=== PATIENT | male | born 1950 | race Caucasian/White ===

== ENCOUNTER 2020-07-29 03:18 | Inpatient (IN) | payer OTHER ==
[~2020-07-29] VITALS: Ht 170.2 cm; Wt 93.1 kg
[~2020-07-29 03:18] MED LIST: ACCUPRIL PO; ALDACTONE25 MG PO; ALDACTONE50 MG PO; AZITHROMYCIN 2250 MG PO; CLOPIDOGREL PO; DIABETA PO; DUONEB 2.5-0.5 M3 ML IH; FAMOTIDINE20 MG PO; FOLIC ACID1 MG PO; FUROSEMIDE 20 M20 MG GT; GLYBURIDE 5 MG T5 M1 GT; LANOXIN 0.250.25 M1 PO; LANTUS SOL100 UNIT/1 SQ; LASIX 20 MG TAB20 MG PO; LASIX 40 MG TAB40 MG PO; LISINOPRIL20 MG PO; NYSTATIN 1100000 U/M PO; PLAVIX 75 MG TA75 MG PO; PREDNISONE 10 M10 M1 PO; PREDNISONE 20 M20 M1; SIMVASTATIN80 MG PO; WELLBUTRIN XL150 M1 PO
[2020-07-29 03:22] VITALS: BP 170/93
[2020-07-29 04:07] LABS: BE(vivo) -1.3 mmol/L (-2 to +3); PCO2 42.7 mmHg (35.0-45.0); PO2 61.8 mmHg (80.0-100.0); pH 7.368 (7.360-7.450)
[2020-07-29 04:23] LABS: ABSOLUTE NEUTROPHILS 13.9 thou/uL (1.4-8.2); BASOPHILS 0.7 % (0.0-2.0); EOSINOPHILS 0.5 % (0.0-3.0); HEMATOCRIT 41.6 % (42.0-52.0); HEMOGLOBIN 13.3 gm/dL (14.0-18.0); LYMPHOCYTES 6.9 % (24.0-44.0); MCH 27.5 pg (26.0-34.0); MCV 85.8 fL (80.0-100.0); MONOCYTES 7.1 % (1.0-8.0); PLATELET COUNT 271 thou/uL (150-400); POLYS 84.8 % (36.0-66.0); RBC 4.85 mil/uL (4.50-6.00); RDW 14.8 % (10.5-14.5); WBC 16.4 thou/uL (4.0-11.0)
[2020-07-29 04:29] LABS: ANION GAP 9 mmol/L (7-16); BUN 17 mg/dL (7-18); CHLORIDE 101 mmol/L (98-107); CO2 26 mmol/L (21-32); CREATININE 1.9 mg/dL (0.7-1.3); GLUCOSE 213 mg/dL (74-106); SODIUM 136 mmol/L (136-145)
[2020-07-29 04:38] LABS: TROPONIN-I <0.06 ng/mL (<0.06)
--- NOTE | 2020-07-29 07:41 | EKG ---
[facility] [place] [address] ELECTROCARDIOGRAM REPORT Name: ANALISA ROMO Room #: [facility].#: [id number] Admission: 07/29/20 Attend Phys: Discharge: Date of : 54 Report #: [id number] THIS REPORT FOR: cc: DR Connie HAMILTON,Jung Arce,Vidal VILLAGOMEZ [facility] ~ THIS REPORT FOR: //name// [facility] ED Test Date: 2020-07-29 Test Time: 03:51:56 Pat Name: ANALISA ROMO Department: Room: Gender: M Material Handling Supervisor: [email or web address] : 1950 Requested By: Blanco Edwards Order Number: [id number] MD: Vidal Arce Measurements Intervals [place] Rate: 110 P: -12 GA: 139 QRS: -155 QRSD: 144 T: 24 QT: 350 QTc: 474 Interpretive Statements Sinus tachycardia Prominent P waves, nondiagnostic RBBB Inferior infarct, old Compared to ECG 03/11/2011 23:47:05 Left posterior fascicular block now present Right-axis deviation no longer present Myocardial infarct finding still present Electronically Signed On 07-29-2020 7:41:31 RN MED SURG by Vidal Arce [email or web address] <ELECTRONICALLY SIGNED> By: Vidal Arce MD, FACC 07/29/20 0741 0 0 Vidal Arce MD, FACC /EPI
[2020-07-29 18:33] VITALS: BP 134/75
[2020-07-29 19:10] VITALS: BP 132/80
[2020-07-29 19:30] LABS: TSH 1.453 uIU/mL (0.358-3.740)
[2020-07-29 20:30] VITALS: BP 127/77
[2020-07-30 00:14] VITALS: BP 144/83
[2020-07-30 04:17] VITALS: BP 122/77
--- NOTE | 2020-07-30 05:03 | NUR ---
ASSUMED PT CARE AT 1900. PT FROM ER. A&OX4. ADMISSION DONE AND PT ORIENTED TO THE UNIT. ON 5L OF O2 93-96%. PT C/O OF TROUBLE BREATHING. CALLED RT FOR TREATMENT. PT SITS UP ON EDGE OF BED TO HELP WITH BREATHING. CLEAR LUNG SOUNDS AIX ADMINISTRATOR NOTIFIED. URINAL AT BEDSIDE. COVID RESULT NEGATIVE. BSG CHECKED WITH INSULIN PROVIDED. CALL LIGHT AT REACH AND WILL CONT TO MONITIOR
[2020-07-30 05:17] LABS: ALBUMIN 3.7 g/dL (3.4-5.0); TOTAL PROTEIN 7.9 g/dL (6.4-8.2)
[2020-07-30 08:53] VITALS: BP 128/72
[2020-07-30 09:18] LABS: HEMATOCRIT 43.2 % (42.0-52.0); HEMOGLOBIN 13.6 gm/dL (14.0-18.0); MCH 27.1 pg (26.0-34.0); MCHC 31.4 g/dL (28.0-37.0); MCV 86.3 fL (80.0-100.0); RBC 5.01 mil/uL (4.50-6.00); RDW 14.8 % (10.5-14.5); WBC 15.3 thou/uL (4.0-11.0)
[2020-07-30 09:19] VITALS: BP 135/91
[2020-07-30 09:23] LABS: CALCIUM 9.4 mg/dL (8.5-10.1); CREATININE 1.6 mg/dL (0.7-1.3); MAGNESIUM 1.4 mg/dL (1.8-2.4); POTASSIUM 5.6 mmol/L (3.5-5.1)
[2020-07-30 15:09] LABS: BE(vivo) -2.6 mmol/L (-2 to +3); HCO3 21.7 mmol/L (22.0-26.0); PCO2 36.5 mmHg (35.0-45.0); PO2 69.1 mmHg (80.0-100.0); pH 7.393 (7.360-7.450); sO2 93.9 % (92.0-98.0)
[2020-07-30 15:20] LABS: HEMATOCRIT 42.3 % (42.0-52.0); HEMOGLOBIN 13.4 gm/dL (14.0-18.0); MCH 26.9 pg (26.0-34.0); MCHC 31.6 g/dL (28.0-37.0); RBC 4.98 mil/uL (4.50-6.00); RDW 14.9 % (10.5-14.5)
[2020-07-30 15:30] LABS: CALCIUM 9.7 mg/dL (8.5-10.1); MAGNESIUM 1.7 mg/dL (1.8-2.4); POTASSIUM 4.9 mmol/L (3.5-5.1)
--- NOTE | 2020-07-30 15:47 | NUR ---
RN ASSUMED PT'S CARE AT 0700AM, PT IS A&OX3, PT IS OFF ISOLATION FOR NEGATIVE COVID, RN HAS REPORTED TO , PT NEEDS MORE O2 TO 10-12L/MIN/NC TO KEEP O2SAT 92-95%, PT HAS SOB WITH ACTIVITIES, PT WAS GOING TO 2N 208 ABOUT 1500PM, RN HAS GIVING REPORT . PT'S FAMILY HAS NOTIFIED ABOUT PT TO ROOM 208.
[2020-07-30 16:45] VITALS: BP 152/76
--- NOTE | 2020-07-30 17:32 | NUR ---
PT ARRIVED TO UNIT FROM 3W AT APPROX 1500. PT ALERT AND ORIENTED.VSS EXCEPT FOR O2 SATS HIGH 80S LOW 90S ON 15L HIGH FLOW O2. PT HR APPEARS TO BE SVT 120S-130S. PHYSICIAN NOTIFIED, PULMONARY NOTIFIED. ORDERS RECEIVED. MAGNESIUM REPLACED. HR RETURNING NORMAL. PT CONTINUES TO BE ON 15L, C/O SOB WITH ACTIVITY. PT CURRENTLTY SITTING UP IN BED DENIES NEEDS AT THIS TIME. WILL CONT TO MONITOR PT AND FOLLOW POC.
[2020-07-30 19:55] VITALS: BP 131/71
--- NOTE | 2020-07-31 02:58 | NUR ---
ASSESSMENTS CHARTED, MEDS CHARTED GIVEN. PATIENT HAS A BBB ON TELEMETRY, LOWER EXTREMITIES ARE +2 EDEMITIS. PATIENT ON HIGH VENKAT CANNULA AT 15 LITERS AT START OF SHIFT. WENT ON BIPAP AT [facility]. PATIENT HAD BOWEL MOVEMENT AND URINATED DURING SHIFT. PATIENT BECOMES VERY SHORT OF BREATH WITH ANY ACTIVITY. DENIES PAIN. FALL PROTECTIONS IN PLACE DURING SHIFT.
[2020-07-31 03:47] VITALS: BP 121/78
[2020-07-31 05:26] LABS: HEMATOCRIT 40.9 % (42.0-52.0); HEMOGLOBIN 13.2 gm/dL (14.0-18.0); MCH 27.6 pg (26.0-34.0); MCHC 32.3 g/dL (28.0-37.0); MCV 85.4 fL (80.0-100.0); RBC 4.79 mil/uL (4.50-6.00); RDW 14.8 % (10.5-14.5); WBC 16.4 thou/uL (4.0-11.0)
[2020-07-31 05:46] LABS: CALCIUM 9.9 mg/dL (8.5-10.1); CREATININE 1.7 mg/dL (0.7-1.3); MAGNESIUM 2.1 mg/dL (1.8-2.4); POTASSIUM 4.4 mmol/L (3.5-5.1)
[2020-07-31 07:31] VITALS: BP 116/67
--- NOTE | 2020-07-31 09:08 | EKG ---
[facility] [place] [address] [facility] [place] [address] ELECTROCARDIOGRAM REPORT Name: ANALISA ROMO Room #: 208-P ADM IN M.R.#: [id number] Admission: 07/29/20 Attend Phys: Bart Perkins MD Discharge: Date of : 54 Report #: [id number] THIS REPORT FOR: cc: DR Connie HAMILTON,Vidal Villarreal MD, MD [facility] ~ THIS REPORT FOR: //name// [facility] [place] Test Date: 2020-07-30 Test Time: 15:08:34 Pat Name: ANALISA ROMO Department: Room: 208 Gender: M Rn Documentation Specialist: Kory VALENTINE : 1950 Requested By: Bart Perkins Order Number: [id number] MD: Vidal Arce Measurements Intervals [place] Rate: 115 P: 5 WV: 133 QRS: -143 QRSD: 136 T: 28 QT: 352 QTc: 487 Interpretive Statements Sinus tachycardia Right bundle branch block Anterolateral infarct, old Compared to ECG 07/29/2020 03:51:56 No significant changes Electronically Signed On 07-31-2020 9:07:51 INKER MACHINE by Vidal Arce [email or web address] <ELECTRONICALLY SIGNED> By: Vidal Arce MD, FACC 07/31/20 0907 1508 1508 Vidal Arce MD, FAC /EPI
[2020-07-31 11:21] VITALS: BP 111/62
[2020-07-31 16:25] VITALS: BP 127/98
--- NOTE | 2020-07-31 17:34 | NUR ---
ASSESSMENT CHARTED. PT ALERT AND ORIENTED. VSS. DENIED HAVING PAIN OR DISCOMFORT. SOB NOTED WITH ACTIVITY. FAL PRECAUTION IN PLACE. NO CONCERNS AT THIS TIME.
[2020-07-31 19:35] VITALS: BP 143/62
[2020-08-01 00:35] VITALS: BP 150/69
--- NOTE | 2020-08-01 02:02 | NUR ---
1999 [facility] PATIENT HAS UNSTEADY GAIT. BED ALARM ON. ASSITED BACK TO BED AND DANGLING ON BEDSIDE. 2229 PATIENT RESTING WITHOUT COMPLAINTS. REPORT GIVEN TO LAURA WEN.
--- NOTE | 2020-08-01 03:28 | NUR ---
RECEIVED PT SITTING UP IN THE BED AROUND MIDNIGHT. AXOX4. PLEASANT. CONT PULSE OX MONITORING. VSS. NO S/S ACUTE DISTRESS NOTED OR REPORTED AT THIS TIME. WILL CONT TO MONITOR FOR ANY CHANGES IN CONDITION.
[2020-08-01 03:46] LABS: HEMATOCRIT 41.2 % (42.0-52.0); MCH 26.7 pg (26.0-34.0); MCHC 31.5 g/dL (28.0-37.0); MCV 84.8 fL (80.0-100.0); RBC 4.86 mil/uL (4.50-6.00); RDW 14.9 % (10.5-14.5); WBC 12.8 thou/uL (4.0-11.0)
[2020-08-01 03:56] LABS: CALCIUM 9.5 mg/dL (8.5-10.1); MAGNESIUM 2.1 mg/dL (1.8-2.4); POTASSIUM 4.3 mmol/L (3.5-5.1)
[2020-08-01 04:35] VITALS: BP 141/64
[2020-08-01 08:30] VITALS: BP 130/71
--- NOTE | 2020-08-01 15:07 | NUR ---
Met with patient who is A/Ox4. He admits with hypoxia now on 15 liters of oxygen. Patient does not wear oxygen at home. patient resides in independent home with and grandchildren. He has a walker and uses as needed. He has a PCP but cannot think of her name at the moment. He reports steps in home but no difficulty. 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 Casemgt following possible need for home oxygen, possible HH.
--- NOTE | 2020-08-01 16:13 | NUR ---
PT ALERT AND ORIENTED. ON HIGH FLOW O2. SOB NOTED WITH ACTIVITY. RT TREATMENT PROVIDED ORDERED. NPO AFTER MIDNIGT. SCHEDULED FOR BRONCHOSCOPY IN AM. NO CONCERNS AT THIS TIME.
[2020-08-01 20:08] VITALS: BP 132/77
[2020-08-02 03:20] VITALS: BP 118/63
[2020-08-02 05:32] LABS: HEMOGLOBIN 12.8 gm/dL (14.0-18.0); MCH 26.9 pg (26.0-34.0); MCHC 31.2 g/dL (28.0-37.0); MCV 86.3 fL (80.0-100.0); RBC 4.76 mil/uL (4.50-6.00); RDW 14.8 % (10.5-14.5); WBC 11.9 thou/uL (4.0-11.0)
[2020-08-02 05:59] LABS: CALCIUM 9.2 mg/dL (8.5-10.1); CREATININE 1.7 mg/dL (0.7-1.3); MAGNESIUM 2.2 mg/dL (1.8-2.4); POTASSIUM 4.1 mmol/L (3.5-5.1)
--- NOTE | 2020-08-02 07:51 | NUR ---
PATIENT SLEPT THROUGH HALF OF THE NIGHT. FALL PRECAUTIONS IN PLACE. USES BEDSIDE COMMODE. PT RECIEVING 50L PER OPTIFLOW. NO COMPLAINTS OF PAIN. PT PICKED UP BY SURGERY THIS MORNING AT 0645 FOR BRONCH. PT NPO SINCE MIDNIGHT, IN HOSPITAL GOWN, JEWELRY/RINGS OFF, AND DENTURES OUT.
[2020-08-02 12:38] VITALS: BP 122/58
[2020-08-02 17:00] VITALS: BP 123/69
[2020-08-02 21:33] VITALS: BP 129/64
--- NOTE | 2020-08-03 01:06 | NUR ---
ASSUMED PT CARE AT THE CHANGE OF SHIFT, PT IS AWAKE, SITTING ON THE SIDE OF BED, ALERT AND ORIENTEDX4, ASSESSMENTS CHARTED, DENIES PAIN, STATES BREATHING BETTER ON OPTIFLOW, SR/BBB ON THE MONITOR, MEDS GIVEN PER NOV, NO NEEDS VOICED, PASSED ON REPORT
[2020-08-03 04:45] VITALS: BP 132/64
--- NOTE | 2020-08-03 04:47 | NUR ---
CARE ASSUMED 0000, PT PLEASANT. ALERT AND ORIENTED. VITALS STABLE. DENIES CHEST PAIN NAUSEA OR VIMITING. MAINTAINED ON OPTIFLOW OVERNIGHT, O2 SATs STABLE. NO CONCERNS , WILL CONTINUE TO MONITOR AND FOLLOW POC.
[2020-08-03 04:51] LABS: HEMATOCRIT 38.7 % (42.0-52.0); HEMOGLOBIN 12.3 gm/dL (14.0-18.0); MCH 27.5 pg (26.0-34.0); MCHC 31.7 g/dL (28.0-37.0); MCV 86.6 fL (80.0-100.0); RBC 4.47 mil/uL (4.50-6.00); RDW 14.7 % (10.5-14.5); WBC 10.3 thou/uL (4.0-11.0)
[2020-08-03 05:09] LABS: CALCIUM 8.7 mg/dL (8.5-10.1); CREATININE 1.7 mg/dL (0.7-1.3); MAGNESIUM 2.2 mg/dL (1.8-2.4); POTASSIUM 4.6 mmol/L (3.5-5.1)
[2020-08-03 07:35] VITALS: BP 144/64
[2020-08-03 11:08] VITALS: BP 134/62
[2020-08-03 12:24] LABS: BE(vivo) 2.5 mmol/L (-2 to +3); HCO3 28.3 mmol/L (22.0-26.0); PCO2 48.4 mmHg (35.0-45.0); pH 7.385 (7.360-7.450); sO2 85.5 % (92.0-98.0)
[2020-08-03 12:31] LABS: PO2 51.3 mmHg (80.0-100.0)
--- NOTE | 2020-08-03 12:56 | NUR ---
PER DR CERON WE ARE TO KEEP THIS PATIENTS SATURATION AT 90%. WE ARE TO ACTIVELY BE WEANING THIS PATIENT TO A LITER FLOW THAT HE CAN GO HOME ON.
[2020-08-03] MEDS ORDERED: BUPROPION HCL150 M1 PO (14:07)
[2020-08-03 15:05] VITALS: BP 136/56
--- NOTE | 2020-08-03 17:13 | NUR ---
Dr Calvo plans to sp with and update. Cont to attempt at weaning of oxygen. possible need for Ltac.
[2020-08-03 19:56] VITALS: BP 133/74
[2020-08-04 05:12] VITALS: BP 151/89
[2020-08-04 05:28] LABS: CALCIUM 8.7 mg/dL (8.5-10.1); CREATININE 1.5 mg/dL (0.7-1.3); POTASSIUM 4.3 mmol/L (3.5-5.1)
[2020-08-04 05:38] LABS: HEMATOCRIT 39.3 % (42.0-52.0); HEMOGLOBIN 12.8 gm/dL (14.0-18.0); MCH 27.7 pg (26.0-34.0); MCHC 32.5 g/dL (28.0-37.0); MCV 85.1 fL (80.0-100.0); RBC 4.61 mil/uL (4.50-6.00); RDW 14.2 % (10.5-14.5); WBC 13.2 thou/uL (4.0-11.0)
[2020-08-04 07:57] VITALS: BP 138/57
--- NOTE | 2020-08-04 08:05 | NUR ---
ASSUMED PT CARE AT AROUND 1900, PT IS AWAKE, ALERT AND ORIENTED, SR/BBB, DENIES PAIN, SOB WITH ACTIVITY, ASESSMENTS CHARTED, MEDS GIVEN PER MAR, DENIES HAVING CONCERNS, PASSED ON REPORT
[2020-08-04 11:05] VITALS: BP 127/65
--- NOTE | 2020-08-04 14:07 | PATH ---
[facility] [address] [place] [address] PATHOLOGY RPT PROCEDURE Name: ANALISA ROMO Room #: 208-P ADM IN M.R.#: [id number] Admission: 07/29/20 Date of : 54 Discharge: Report #: [id number] Path Case #: [id number] Note [facility] Accession Number: [id number] TESTS RESULT FLAG UNITS REF RANGE LAB Clinician Provided Cytology Information No. of containers..01 Other (Miscellaneous) Source: 01 N DIAGNOSIS: 02 N NEGATIVE FOR MALIGNANT EPITHELIAL CELLS. NORMAL BRONCHIAL CELLS AND MACROPHAGES ARE PRESENT. RED BLOOD CELLS ARE PRESENT. THIS INTERPRETATION INCLUDES EVALUATION OF A CELL BLOCK. Pathologist ICD10: 02 R91.8 Signed out by: 02 Domenica Knowles MD, Pathologist NPI- [id number] Performed by: 01 Alisa Tobias, Director Specialty ([facility]) Gross description: 01 20ML, COLORLESS, 1TP 1CB /LCS 08/03/2020 0804 Local FLAG LEGEND: L-Low Normal,H-High Normal,LL-Alert Low,HH-Alert High <-Panic Low,>-Panic High,A-Abnormal,AA-Critical Abnormal Performed at: [address] [place] [address] Dorian Birch MD, [address] [address] Domenica Knowles MD, Specimen Comment: A courtesy copy of this report has been sent to [phone], [phone] Specimen Comment: [phone], , Specimen Comment: Report sent to DR CERON,DR HAMILTON,DR MORENO / DR TANNER Specimen Comment: A duplicate report has been generated due to demographic updates. Performed at: [address], [place], [place] [id number] [address] [address] PATHOLOGY RPT PROCEDURE Name: DEMETRIUSANALISAALIX ROJAS Room #: 208-P ADM IN M.R.#: [id number] Admission: 07/29/20 Date of : 54 Discharge: Report #: [id number] Path Case #: [id number] [facility] Phone: [phone]
[2020-08-04 15:35] VITALS: BP 118/68
--- NOTE | 2020-08-04 16:01 | NUR ---
PT ALERT AND ORIENTED. VSS. NO CARDIAC OR RESPIRATORY DISTRESS NOTED.
--- NOTE | 2020-08-04 17:11 | PATH ---
[facility] [address] [place] [address] PATHOLOGY RPT PROCEDURE Name: ANALISA ROMO Room #: 208-P ADM IN M.R.#: [id number] Admission: 07/29/20 Date of : 54 Discharge: Report #: [id number] Path Case #: [id number] Note LCA Accession Number: [id number] TESTS RESULT FLAG UNITS REF RANGE LAB Clinician Provided Cytology Information No. of containers..01 Other (Miscellaneous) Source: 01 N DIAGNOSIS: 02 LUNG, BAL INCONCLUSIVE. THIS INTERPRETATION INCLUDES EVALUATION OF A CELL BLOCK. SCANT MARKEDLY ATYPICAL SQUAMOUS EPITHELIAL CELLS. MARKED ACUTE INFLAMMATION, HISTORY OF CAVITARY LESION. Comment: Scant detached and single orageophilic markedly atypical squamous epithelial cells are identified. These may represent partially sampled neoplastic cells. The concurrent biopsy tissue, [id number] showed a squamous cell carcinoma in-situ. Please refer to a separate report for details. Pathologist ICD10: 02 R91.8 Signed out by: Onur Knowles MD, Pathologist NPI- [id number] Performed by: Ben Tobias, Cop Winder ([facility]) Gross description: 01 15ML, RED, 1TP 1CB /LCS 08/03/2020 0801 Local FLAG LEGEND: L-Low Normal,H-High Normal,LL-Alert Low,HH-Alert High <-Panic Low,>-Panic High,A-Abnormal,AA-Critical Abnormal Performed at: [address] [facility] [address] [facility] [address] [place] [address] Dorian Birch MD, 02 [facility] [address] [address] Domenica Knowles MD, Specimen Comment: A courtesy copy of this report has been sent to [phone], [phone] Specimen Comment: [phone] [address] PATHOLOGY RPT PROCEDURE Name: DEMETRIUSANALISA RCYSTAL Room #: 208-P [facility] IN M.R.#: [id number] Admission: 07/29/20 Date of : 54 Discharge: Report #: [id number] Path Case #: [id number] Specimen Comment: Report sent to / DR TANNER Performed at: [address], [place], [place] [id number] MD Dorian Birch MD Phone: [phone]
--- NOTE | 2020-08-04 18:07 | PATH ---
[facility] [address] [address] PATHOLOGY RPT PROCEDURE Name: ANALISA GALINDO CRYSTAL Room #: 208-P ADM IN M.R.#: [id number] Admission: 07/29/20 Date of : 54 Discharge: Report #: [id number] Path Case #: [id number] LCA Accession Number: [id number] . 01 Material submitted: . PART A: bronchus - RIGHT HILAR MASS TBNA PART B: bronchus - SUBCARINAL MASS TBNA . 01 Clinical history: . CAVITARY LESION OF LUNG, HYPOXIA, PUI . 02 Diagnosis: A. Tissue designated as right hilar mass, transbronchial needle aspiration: - SUPERFICIAL FRAGMENTS SHOWING AT LEAST SQUAMOUS CELL CARCINOMA IN SITU; FOCAL AREA SUSPICIOUS FOR INVASION. - Abundant fragments of benign bronchial epithelium without any dysplasia or malignancy. - No lymphoid tissue present. . B. Tissue designated as subcarinal mass TBNA: - Superficial fragments of benign bronchial epithelium. - No intact bronchial wall/submucosa. - Focal lymphoid tissue present compatible with lymph node sampling. - Negative for dysplasia or malignancy. . (IUV:health and safety tech; 08/04/2020) MBR 08/04/2020 1747 Local . 02 Comment: Examination of the "right hilar mass" TBNA tissue shows no lymphoid tissue; however, has tiny fragments of squamous cell carcinoma in situ. Focal subtle desmoplastic response suspicious for invasion is identified. Definitive epithelial islands amidst this desmoplastic response are not identified. This precludes a definitive diagnosis of an invasive squamous cell carcinoma. . Co-review: Dr. Blanco Marrufo. . Findings of this case are conveyed to Dr. Cj Charlotn at approximately 1:10 p.m. on 08/04/2020. . (IUV:health and safety tech; 08/04/2020) . 02 Electronically signed: . Domenica Knowles MD, Pathologist NPI- [id number] [place] [address] PATHOLOGY RPT PROCEDURE Name: ANALISA GALINDO CRYSTAL Room #: 208-P [facility] IN .R.#: [id number] Admission: 07/29/20 Date of : 54 Discharge: Report #: [id number] Path Case #: [id number] . 01 Gross description: . A. The specimen is received in formalin, labeled "Analisa Galindo", "right hilar mass TBNA". Received are multiple fragments of pale harden-light brown hemorrhagic tissue, measuring 1.0 x 1.0 x 0.1 cm in aggregate dimensions. The specimen is filtered and entirely submitted in cassette A1. . B. The specimen is received in formalin, labeled "Analisa Galindo", "subcarinal mass TBNA". Received are multiple fragments of pale harden-brown hemorrhagic tissue measuring 0.8 x 0.5 x 0.1 cm in aggregate dimensions. The specimen is filtered and entirely submitted in cassette B1.(SNA; 08/03/2020) DIEGO/HILLARY 08/03/2020 1518 Local . 02 Pathologist provided ICD-10: D02.21 . 02 CPT . 332391, [id number] Specimen Comment: A courtesy copy of this report has been sent to [phone], [phone] Specimen Comment: [phone] Specimen Comment: Report sent to / DR TANNER Performed at: [address], [place], [place] [id number] MD Dorian Birch MD Phone: [phone] Performed at: [address] [id number] MD Domenica Knowles MD Phone: [phone]
[2020-08-04 20:16] VITALS: BP 152/71
[2020-08-05] VITALS (8 sets, daily range): BP systolic 127–135; BP diastolic 55–74
--- NOTE | 2020-08-05 06:09 | NUR ---
pt resting quietly in bed thru the noc, vss hr st with bbb, no c/o pain, pt hoping to go home soon.
--- NOTE | 2020-08-05 10:39 | NUR ---
Assess due to length of stay. Admit with pneumonia, acute respiratory failure. Pt eating 100% meals. Slight wt loss 7 lb from pt reported wt 212, current wt 205 lb. BMI 32.1-obese. BG elevated 159-252, on a carb control diet order. Started B12 supplementation. Prealbumin wnl. Note new consultation to oncologist for new lung cancer dx. Pt presently at low nutrition risk
--- NOTE | 2020-08-05 15:59 | NUR ---
Case discussed with the care team. Continuing to try and wean O2 down so pt can go home around 5liters nc. Referral faxed to [facility] should the pt be dc ready over the weekend. They can accept his insurance plan and will need a script faxed along with qualifying roomair and exer ox to [phone] and the liason called to deliever a portable tank [phone].
--- NOTE | 2020-08-05 18:21 | NUR ---
here and concerned about pt's f/u care at or. She feels he will need PT/OT to reeval as well as possible hh at or. Discussed referral to [facility] as they take the pt's ins plan. They are agreeable to O2 per Vicente and wonder if the pt may benefit from cane as well. reports complex social issues as they have two grandchildren living with them and she has to work to support the family. She does not drive. Support provided. [employer] info provided. PT/OT requested to reeval. Will ask the attending for HH orders at or. Nursing to fax orders and facesheet and h/p to [facility] at [phone] if dc'd over the weekend. Will ask for script for a cane as well if recommended by therapy.
--- NOTE | 2020-08-05 21:14 | NUR ---
RECEIVED PT'S CARE AROUND 0715; PT. ON BED; ALERT; DURING AM ASSESSMENT AOX4; NO C/O PAIN; ST. WANTS TO GO HOME; EDUCATED ABOUT D/C PROCESS; AM MEDICATIONS GIVEN; EDUCATED ABOUT FALL PRECAUTIONS; REFUSED BED ALARM ON; EDUCATED ABOUT O2 SAT AND 02 REQUIREMENTS TO POSSIBLE BE D/C; REFUSED LUNCH; PT'S CONCERNED ABOUT PT. GOING HOME WHILE BEING WEAK; PT AND OT CONSULT; SR-ST ON THE MONITOR; ASSESSMENT CHARGED; FOLLOWING POC; PASSED ON REPORT;
[2020-08-06 04:00] VITALS: BP 128/81
--- NOTE | 2020-08-06 07:26 | NUR ---
ASSUMED CARE OF PATIENT AT 1900; AOX4; HIGH FALL RISK/REFUSES BED ALARM/USES BSC; ST WITH ACTIVITY AND DECREASED O2 SAT; HIGH FLOW N/C TITRATED DOWN BY RT TO 5.5 LPM WITH 02 SATs 88 AND ABOVE; SOB ON EXERTION; SR/BBB/ST ON THE MONITOR; NO C/O OF PAIN THROUGHOUT THE NOC; BLOOD GLUCOSE MANAGED WITH INSULIN LISPRO AND SCHEDULED GLARGINE; PLAN IS TO CONTINUE TO OBSERVATION OF O2 SAT AND TITRATE DOWN HIGH-FLOW O2; WILL CONTINUE TO MONITOR
[2020-08-06 07:30] VITALS: BP 138/62
[2020-08-06 17:51] VITALS: BP 126/83
--- NOTE | 2020-08-06 20:03 | NUR ---
RECEIVED PT'S CARE AROUND 722; PT. ON BED; ALERT; DURING AM ASSESSMENT AOX4; DURING AM ASSESSMENT NO C/O PAIN; AM MEDICATION GIVEN; POOR APPETITE; EDUCATED ABOUT THE IMPORTANCE OF EATING; NO ANSWER BACK; PHYSICIAN NOTIFIED DURING ROUNDING; ORDERS RECEIVED; ST WITH EXERTION PHYSICIAN NOTIFIED; NO NEW ORDERS; MRI ORDER; PER DR. BRIDGET WILKERSON TO CHANGE IT TO STAT; NEW IV STARTED; GONE FOR PROCEDURE DURING THE AFTERNOON; 02 EXERCISE REST PERFORMED; WORKED WITH PT DURING THE AFTERNOON; WALKER GIVEN; EDUCATED ABOUT FALL PRECAUTIONS; ST. UNDERSTANDING; REFUSED BED ALARM; ASSESSMENT CHARGED; FOLLOWING POC; PASSED ON REPORT;
[2020-08-06 20:25] VITALS: BP 132/60
[2020-08-07 03:40] VITALS: BP 133/82
--- NOTE | 2020-08-07 04:03 | NUR ---
SLEPT PART OF SHIFT. STATES ONLY SLEEPS 2HR AT A TIME EVEN AT HOME. WORKING ON GOALS AND PLAN OF CARE FOR NOC. UP TO COMODE AT BEDSIDE. CALLS FOR ASSIST TO BATHROOM NEEDED. PROGRESSING TOWARDS DISCHARGE GOALS SLOWLY. DENIES COMPLAINTS OF PAIN. REMAINS WITH SHORTNESS OF AIR WITH ACITIVITY. O2 SATS 94-97% THIS SHIFT. CONTINUE TO ASSES CLOSELY.
[2020-08-07 07:20] VITALS: BP 111/50
[2020-08-07] MEDS ORDERED: MUCINEX600 MG PO (08:55)
[2020-08-07] MEDS ORDERED: B-12500 MCG PO (08:56)
[2020-08-07] MEDS ORDERED: PREDNISONE 10 M10 M1 PO (08:58)
[2020-08-07] MEDS ORDERED: XANAX 0.5 MG0.5 M1 PO (10:11)
[2020-08-07 11:25] VITALS: BP 136/77
--- NOTE | 2020-08-07 11:27 | NUR ---
RECEIVED PT'S CARE AROUND 0735; PT. ON BED; RESTING WITH EYES CLOSED; EQUAL CHEST RISING; O2 SAT ABOVE 90% ON 5L; DURING AM ASSESSMENT AOX4; NO C/O PAIN; AM MEDICATIONS GIVEN; D/C ORDERS ON PLACED; PT. NOTIFIED; EDUCATED ABOUT D/C PROCESS; [facility]; SR-ST ON THE MONITOR; PHYSICIAN AWARE AND NOTIFIED DURING ROUNDINGS; INTERNAL COMBUSTION ENGINE INSPECTOR NOTIFIED ABOUT 02 REQUIREMENTS AND D/C ORDERS; PER INTERNAL COMBUSTION ENGINE INSPECTOR WILL TOMATO GRADER TO DELIVER 02; NUTRITIONIST UNDERSTANDING; PT. AND SPOUSE NOTIFED; [facility]; ASSESSMENT CHARGED; FOLLOWING POC; WILL WORK ON D/C PAPERS;
[2020-08-07 12:31] VITALS: BP 135/71
--- NOTE | 2020-08-10 13:46 | NUR ---
PT DISCHARGED TO HOME WITH HOME O2 PT RECEIVED PORT 02 TANK PRIOR TO DC FROM [facility] THEY DID NOT RECEIVE SCRIPT OR REFERRAL SO FAXED INFO TODAY SPOKE WITH LYUDMILA IN INTAKE AND THEY RECEIVED REFERRAL AND SCRIPT.
== END 2020-08-07 14:32 | disposition home health service (06) | DRG 180 ==
LOC: ER 03:18 → EROBS 08:50 → 2N 08:50 → 3W 19:10 → 2N 07-30 14:55
PROVIDERS: Emergency Medicine; Hospitalist; Internal Medicine Pulmonary Disease; Pediatrics; ADMIT Internal Medicine; ATTEND Internal Medicine
DX: D02.20 Carcinoma in situ of unspecified bronchus and lung (principal); J96.01 Acute respiratory failure with hypoxia; I13.0 Hypertensive heart and chronic kidney disease with heart failure and stage 1 through stage 4 chronic kidney disease, or unspecified chronic kidney disease; I42.9 Cardiomyopathy, unspecified; N17.9 Acute kidney failure, unspecified; J98.4 Other disorders of lung; E87.5 Hyperkalemia; E78.5 Hyperlipidemia, unspecified; E11.22 Type 2 diabetes mellitus with diabetic chronic kidney disease; R59.0 Localized enlarged lymph nodes; N18.30 Chronic kidney disease, stage 3 unspecified; F17.210 Nicotine dependence, cigarettes, uncomplicated; F32.9 Major depressive disorder, single episode, unspecified; J43.9 Emphysema, unspecified; R91.8 Other nonspecific abnormal finding of lung field; E53.8 Deficiency of other specified B group vitamins; I25.10 Atherosclerotic heart disease of native coronary artery without angina pectoris; I50.9 Heart failure, unspecified; Z95.5 Presence of coronary angioplasty implant and graft; I25.2 Old myocardial infarction; Z79.01 Long term (current) use of anticoagulants; Z79.4 Long term (current) use of insulin; Z79.899 Other long term (current) drug therapy; Z20.828 Contact with and (suspected) exposure to other viral communicable diseases
CPT/HCPCS: 10081; 10879; 50010; 62110; 62900; 70005

== ENCOUNTER 2020-08-23 11:25 | Inpatient (IN) | payer OTHER ==
[~2020-08-23] VITALS: Ht 170.2 cm; Wt 92.7 kg
[2020-08-23] VITALS (13 sets, daily range): BP systolic 68–138; BP diastolic 38–72
[~2020-08-23 11:25] MED LIST changes: +B-12500 MCG PO; +BUPROPION HCL150 M1 PO; +MUCINEX600 MG PO; +XANAX 0.5 MG0.5 M1 PO
[2020-08-23 12:13] LABS: ABSOLUTE NEUTROPHILS 4.1 thou/uL (1.4-8.2); BASOPHILS 0.5 % (0.0-2.0); EOSINOPHILS 2.6 % (0.0-3.0); HEMATOCRIT 32.8 % (42.0-52.0); HEMOGLOBIN 10.7 gm/dL (14.0-18.0); LYMPHOCYTES 17.9 % (24.0-44.0); MCH 27.5 pg (26.0-34.0); MCHC 32.5 g/dL (28.0-37.0); MCV 84.5 fL (80.0-100.0); MONOCYTES 11.5 % (1.0-8.0); PLATELET COUNT 373 thou/uL (150-400); POLYS 67.5 % (36.0-66.0); RBC 3.88 mil/uL (4.50-6.00); RDW 14.6 % (10.5-14.5)
[2020-08-23 12:39] LABS: CALCIUM 8.9 mg/dL (8.5-10.1); CREATININE 2.9 mg/dL (0.7-1.3); POTASSIUM 5.2 mmol/L (3.5-5.1)
[2020-08-23 12:45] LABS: ALBUMIN 2.2 g/dL (3.4-5.0); DIRECT BILIRUBIN 0.2 mg/dL (<0.1-0.2); TOTAL BILIRUBIN 0.4 mg/dL (0.2-1.0); TOTAL PROTEIN 7.3 g/dL (6.4-8.2)
[2020-08-23] MEDS ORDERED: FENOFIBRATE54 MG PO (14:56)
[2020-08-23] MEDS ORDERED: MECLIZINE HCL25 MG PO (14:56)
[2020-08-23] MEDS ORDERED: PROTONIX40 M2 PO (14:57)
[2020-08-23 15:02] LABS: URINE BILIRUBIN NEGATIVE (Negative); URINE BLOOD NEGATIVE (Negative); URINE CLARITY CLEAR; URINE COLOR YELLOW; URINE GLUCOSE-RANDOM* NEGATIVE (Negative); URINE KETONES NEGATIVE (Negative); URINE LEUKOCYTES-REFLEX NEGATIVE (Negative); URINE NITRITE-REFLEX NEGATIVE (Negative); URINE PROTEIN (DIPSTICK) NEGATIVE (Negative); URINE SPECIFIC GRAVITY 1.025 (1.005-1.035); URINE UROBILINOGEN 0.2 E.U./dl (0.2-1.0)
--- NOTE | 2020-08-23 16:55 | NUR ---
BEVERLY WAS CALLED BY ICU NURSE TO ASK HER TO TELL ME TO 'NOT BRING PT. UP YET THEY HAVE A VISITOR IN WITH ANOTHER PT. NEXT TO PT.'S ROOM AND THEY ARE UNCOMFORTABLE WITH HIS COVID STATUS AROUND THEM,' ALSO 'THEY ARE ALL OUT OF N95 MASKS' BEVERLY ASKED IF THEY TOLD SHERLY MARKS, THE NURSE SAID YES.
--- NOTE | 2020-08-23 19:33 | NUR ---
VASCULAR ACCESS CONSULTED FOR PICC PLACEMENT. DISCUSSED BENEFITS AND RISK WITH PT, VERBALIZED UNDERSTANDING. PT STATES UNABLE TO LAY FLAT DUE TO DYSPNEA. ELADIO BASILIC WAS WIDELY PATENT WITH USG. 5FR TL POWER PICC TRIMMED TO 43CM INSERTED TO 2CM EXTERNAL. STAT CXR ORDERED. PT TOLERATED WELL
--- NOTE | 2020-08-23 19:35 | NUR ---
1800 - PT ARRIVED TO THE UNIT ON [facility] BY ED RN ESCORT ON 8L OF O2. VANCOMYCIN, WAS TUBED DOWN. PT'S BELONGINGS WERE PAJAMAS, GLASSES, PHONE AND FORM PRESSER, AND SHOES. NO COMPLAINTS OF CHEST PAIN/N/V/D FROM THE PT. WHEN PT STOOD UP FROM [facility] TO TRANSFER TO BED, PT GOT WOBBLY AND HAD TO BE SAT BACK DOWN. BOTH RN'S HELPED THE PT TRANSFER TO THE BED. PT WAS TOLD BY THIS RN TO NOT GET UP AND USE THE CALL LIGHT FOR ANY ACTIVITIES, PT STATED UNDERSTANDING HOSPITAL RULES/POLICIES FROM PREVIOUS HOSPITILIZATIONS. 1936 - RN CALLED ARUN, UPDATED ON CURRENT PT CARE AND STATUS. WAS TOLD TO CALL MD TOMORROW FOR PROGNOSIS QUESTIONS. CONTINUING TO MONITOR AT THIS TIME. AUTUMN WEN TAKING OVER
--- NOTE | 2020-08-23 19:44 | NUR ---
CXR CONFIRMED PICC PLACEMENT IN LOWER SVC. PICC RELEASED FOR IMMEDIATE USE PER PROTOCOL TO BEHZAD
[2020-08-23 20:40] LABS: CALCIUM 8.6 mg/dL (8.5-10.1); CREATININE 2.1 mg/dL (0.7-1.3); POTASSIUM 5.9 mmol/L (3.5-5.1)
[2020-08-23 20:46] LABS: ALBUMIN 1.9 g/dL (3.4-5.0); TOTAL BILIRUBIN 0.7 mg/dL (0.2-1.0); TOTAL PROTEIN 6.5 g/dL (6.4-8.2)
[2020-08-23 20:51] LABS: APTT 28.3 Seconds (24.5-32.8); FIBRINOGEN 571.2 mg/dL (210-360); INR 1.1; PROTIME 11.4 Seconds (9.3-11.4)
--- NOTE | 2020-08-23 22:03 | NUR ---
Updated Jenifer Galindo () with pt's condition.
[2020-08-24] VITALS (53 sets, daily range): BP systolic 96–163; BP diastolic 52–98
[2020-08-24 03:52] LABS: ABSOLUTE NEUTROPHILS 3.5 thou/uL (1.4-8.2); BASOPHILS 0.4 % (0.0-2.0); EOSINOPHILS 0.1 % (0.0-3.0); HEMATOCRIT 29.3 % (42.0-52.0); HEMOGLOBIN 10.1 gm/dL (14.0-18.0); MCH 29.1 pg (26.0-34.0); MCHC 34.3 g/dL (28.0-37.0); MCV 84.8 fL (80.0-100.0); MONOCYTES 2.8 % (1.0-8.0); PLATELET COUNT 394 thou/uL (150-400); POLYS 87.7 % (36.0-66.0); RBC 3.46 mil/uL (4.50-6.00); RDW 14.8 % (10.5-14.5)
[2020-08-24 04:06] LABS: CALCIUM 8.6 mg/dL (8.5-10.1); CREATININE 2.1 mg/dL (0.7-1.3)
[2020-08-24 05:12] LABS: POTASSIUM 6.1 mmol/L (3.5-5.1)
--- NOTE | 2020-08-24 11:25 | NUR ---
PT REQUESTING HIS PHONE CYCLE REPAIRER. THIS RN GOT OUT PT'S BELONGINGS AND NO PHONE CYCLE REPAIRER IS WITH BELONGINGS. THIS RN ASKED ADMIT NURSE FROM YESTERDAY IF HE RECALLS THE PATIENT HAVING A PHONE CYCLE REPAIRER AND ADMIT NURSE STATED THAT PT TOLD HIM HE HAD A PHONE CYCLE REPAIRER BUT THAT HE DID NOT WITNESS ONE. HE STATES HE ENTERED PT BELONGING FROM WHAT PT TOLD HIM AND DID NOT VISUALIZE BELONGINGS HIMSELF. PT HAS 2 WHITE SOCKS, UNDERWEAR, PAJAMA BOTTOMS, PAIR OF SHOES AND COAT IN ROOM ALONG WITH CELL PHONE AND GLASSES. NO CYCLE REPAIRER IS LOCATED AT THIS TIME. PT'S STATES SHE WILL TRY AND BRING UP AN EXTRA CYCLE REPAIRER FROM HOME.
--- NOTE | 2020-08-24 14:14 | NUR ---
PT'S JANET CALL THIS AM AND WAS GIVEN PT UPDATE. ALL QUESTIONS ANSWERED.
--- NOTE | 2020-08-24 15:51 | NUR ---
chart review. unable to visit with [facility] on ppe. covid + prior to hospital. sig other is + for covid as well. chart review, has walker, home o2 from [facility]. he is requiring oxygen currently. was at home quarantine when started not feeling well. has had [facility]. will cont following as needed for dc needs.
--- NOTE | 2020-08-24 19:39 | NUR ---
PT REMAINED ON 8L NC THIS SHIFT. PT DID NOT APPEAR TO HAVE ANY RESPIRATORY DISTRESS THIS SHIFT. O2 SAT REMAINED BETWEEN 92-95%.
--- NOTE | 2020-08-24 23:51 | NUR ---
PT JANET CALLED APPROXIMATELY 1999, DISCUSSED STATUS OF PT WITH HER, EXPLAINING WHAT PARAMETERS PT NEEDS TO MEET BEFORE ABLE TO BE DISCHARGED, INCLUDING BEING BACK TO BL 02. STATES PT IS USUALLY ON 5-6L 02 AT HOME. SHE THEN PROCEEDED TO ASK ABOUT THE COVID TEST RESULTS. THIS RN EXPLAINED THAT THE RESULTS TAKE SOME TIME AND SHE WOULD BE NOTIFIED WHEN THEY CAME BACK. SHE ASKED IF PT HAD BEEN EATING, THIS RN EXPLAINED THAT PT REFUSED TO EAT THE FOOD GIVEN TO HIM ON HIS CURRENT DIABETIC/CARDIAC DIET. PT VERBALIZED TO STAFF THAT HE WOULD NOT EAT THE FOOD HERE BECAUSE IT WAS TERRIBLE. THIS RN EXPLAINED TO JANET THAT LONG PT IS ABLE TO MAKE OWN DECISIONS, HE CAN CHOOSE TO NOT EAT, BUT THIS RN WILL NOT PROVIDE FOOD OUTSIDE OF DIET PARAMETERS WHILE HE IS IN HOSPITAL. JANET THEN EXPRESSED GREAT CONCERN THAT PT DID NOT HAVE GLUE FOR HIS DENTURES. THIS RN STATED THAT SHE COULD BRING GLUE TO MANAGER CORPORATE RESPONSIBILITY FOR PT. SHE STATED SEVERAL TIMES THAT "HE CAN'T GET HIS STRENGTH IF HE WON'T EAT." SHE THEN ASKED ABOUT THE COVID TEST RESULTS AGAIN. THIS RN AGAIN REITERATED THAT THE RESULTS TAKE TIME AND SHE WOULD BE NOTIFIED WHEN THEY COME IN. PT HAD BEEN TOLD AT 1950 THAT PAIN MEDICATIONS WERE NOT AVAILABE TO HIM UNTIL 2244. PT CALLED , WHO CALLED THIS RN A SECOND TIME APPROXIMATELY 2029 TO NOTIFY RN THAT HE NEEDED MORE PAIN MEDS. THIS RN WAS NOT AVAILABLE AT TIME OF CALL, MESSAGE LEFT. ADDITIONAL MEDICATIONS OBTAINED FOR PT. WHILE RN WAS IN ROOM GIVING HS MEDS AND ASSESSMENT, JANET CALLED PT AGAIN, ASKING IF HE HAD RECIEVED PAIN MEDICATION AND IF HIS COVID TEST HAD COME BACK. PT NOTIFIED THAT PAIN MEDS WERE PENDING FROM PHARMACY AND THAT HIS RESULTS WEREN'T BACK YET
[2020-08-25] VITALS (33 sets, daily range): BP systolic 114–151; BP diastolic 47–87
--- NOTE | 2020-08-25 07:04 | NUR ---
PT RESTING FOR MOST OF SHIFT, PAIN AROUND SALINAS INSERTION SITE. TYLENOL GIVEN WITH RELIEF. ABLE TO TURN SELF IN BED, HELPED WITH BATH. PLEASANT AND COOPERATIVE.
[2020-08-25 07:21] LABS: ABSOLUTE NEUTROPHILS 7.6 thou/uL (1.4-8.2); BASOPHILS 0.2 % (0.0-2.0); HEMOGLOBIN 9.8 gm/dL (14.0-18.0); INR 1.2; LYMPHOCYTES 5.2 % (24.0-44.0); MCH 27.8 pg (26.0-34.0); MCHC 32.8 g/dL (28.0-37.0); MCV 84.7 fL (80.0-100.0); MONOCYTES 5.6 % (1.0-8.0); PLATELET COUNT 460 thou/uL (150-400); RBC 3.54 mil/uL (4.50-6.00); WBC 8.5 thou/uL (4.0-11.0)
[2020-08-25 07:26] LABS: FIBRINOGEN 563.7 mg/dL (210-360)
[2020-08-25 07:27] LABS: ALBUMIN 1.9 g/dL (3.4-5.0); CALCIUM 8.6 mg/dL (8.5-10.1); CREATININE 2.5 mg/dL (0.7-1.3); POTASSIUM 5.4 mmol/L (3.5-5.1); TOTAL BILIRUBIN 0.3 mg/dL (0.2-1.0); TOTAL PROTEIN 6.5 g/dL (6.4-8.2)
[2020-08-25 12:34] LABS: ALBUMIN 1.9 g/dL (3.4-5.0); CALCIUM 8.7 mg/dL (8.5-10.1); CREATININE 2.5 mg/dL (0.7-1.3); DIRECT BILIRUBIN 0.1 mg/dL (<0.1-0.2); PHOSPHORUS 3.8 mg/dL (2.5-4.9); POTASSIUM 5.2 mmol/L (3.5-5.1); TOTAL BILIRUBIN 0.3 mg/dL (0.2-1.0); TOTAL PROTEIN 6.4 g/dL (6.4-8.2)
--- NOTE | 2020-08-25 17:16 | NUR ---
ASSUMED CARE @ 0700 08/25/20, PT ASSESSMENTS AND VSS COMPLETE PER ICU PRT. DR RAWLS AND DR BRIAN AT BEDSIDE THIS AM, NO NEW ORDERS RECIEVED AT THIS TIME. JANET CALLED @ 0929, RN ABLE TO CALL BACK @ 1029, CODE VERIFIED AND UPDATE GIVEN. ALSO CALLED @ 3138 UPDATE GIVEN. PT HAD AN UNEVENTFUL DAY WILL CONT TO MONITOR.
[2020-08-26] VITALS (32 sets, daily range): BP systolic 108–158; BP diastolic 65–93
--- NOTE | 2020-08-26 05:27 | NUR ---
ASSESSMENTS CHARTED, MEDS CHARTED GIVEN. PATIENT RESTING IN BED WATCHING A FOOTBALL GAME, DOSING PERIODICALLY. CONCERN ABOUT PAIN IN HIS PENIS, BLOOD TINGED URINE. GETTING NORMAL SALINE MAINTENANCE FLUID THROUGHOUT SHIFT. SR WITH BBB ON TELEMETRY, LUNGS COARSE OVER DIMINISHED, ON 6 LITERS NC. ACHS ACCU CHECKS. COVERED HS. PATIENT REPOSITIONING HIMSELF IN BED. REFUSED TO CLEAN UP DURING SHIFT. FALL PRECAUTIONS IN PLACE DURING SHIFT.
[2020-08-26 05:33] LABS: HEMATOCRIT 30.1 % (42.0-52.0); HEMOGLOBIN 9.7 gm/dL (14.0-18.0); MCH 27.3 pg (26.0-34.0); MCHC 32.3 g/dL (28.0-37.0); MCV 84.6 fL (80.0-100.0); RBC 3.55 mil/uL (4.50-6.00); RDW 14.7 % (10.5-14.5); WBC 10.2 thou/uL (4.0-11.0)
[2020-08-26 05:41] LABS: ALBUMIN 1.9 g/dL (3.4-5.0); CALCIUM 8.1 mg/dL (8.5-10.1); CREATININE 2.3 mg/dL (0.7-1.3); DIRECT BILIRUBIN 0.1 mg/dL (<0.1-0.2); PHOSPHORUS 3.2 mg/dL (2.5-4.9); POTASSIUM 5.7 mmol/L (3.5-5.1); TOTAL BILIRUBIN 0.2 mg/dL (0.2-1.0)
--- NOTE | 2020-08-26 18:11 | NUR ---
PT AWAKE AND ALERT ALL DAY. PT VERBALIZING EAGERNESS TO BE DISCHARGED DUE TO AN APPOINTMENT HE HAS NEXT WEEK FOR AN MRI TO EVALUATE FOR METASTASIS OF HIS LUNG CANCER. PT SAT UP IN BED CHAIR POSITION ALL DAY WITHOUT PROBLEMS. PO INTAKE WAS FAIR. PT STATES THAT HIS ABILITY TO TASTE AND SMELL ARE COMING BACK, BUT HE DOESN'T LIKE THE HOSPITAL FOOD. ENCOURAGEMENT AND REASSURANCES OFFERED. URINE OUTPUT VERY GOOD. PT IS OVERALL PROGRESSING STEADILY TOWARD GOALS.
[2020-08-27] VITALS (24 sets, daily range): BP systolic 129–159; BP diastolic 68–105
[2020-08-27 04:50] LABS: CALCIUM 8.6 mg/dL (8.5-10.1); CREATININE 1.8 mg/dL (0.7-1.3); DIRECT BILIRUBIN 0.1 mg/dL (<0.1-0.2); PHOSPHORUS 3.6 mg/dL (2.5-4.9); POTASSIUM 5.4 mmol/L (3.5-5.1); TOTAL BILIRUBIN 0.3 mg/dL (0.2-1.0)
--- NOTE | 2020-08-27 05:45 | NUR ---
PATIENT HAD A GOOD NIGHT LAST NIGHT. PATIENT IS A&OX 4. PATIENT MOVES ALL EXTREMITIES. PATIENT DENIES PAIN OR DISTRESS. PATIENT REMINDED TO DEEP BREATHE AND COUGH. PATIENT TAUGHT ABOUT PRONING.
[2020-08-28] VITALS (7 sets, daily range): BP systolic 128–156; BP diastolic 66–88
[2020-08-28 05:07] LABS: ALBUMIN 2.1 g/dL (3.4-5.0); CALCIUM 8.7 mg/dL (8.5-10.1); CREATININE 1.4 mg/dL (0.7-1.3); DIRECT BILIRUBIN 0.1 mg/dL (<0.1-0.2); PHOSPHORUS 3.3 mg/dL (2.5-4.9); POTASSIUM 4.9 mmol/L (3.5-5.1); TOTAL BILIRUBIN 0.3 mg/dL (0.2-1.0); TOTAL PROTEIN 5.8 g/dL (6.4-8.2)
[2020-08-28 07:06] LABS: HEMATOCRIT 31.2 % (42.0-52.0); MCH 27.3 pg (26.0-34.0); MCHC 32.2 g/dL (28.0-37.0); MCV 84.9 fL (80.0-100.0); PLATELET COUNT 558 thou/uL (150-400); RBC 3.67 mil/uL (4.50-6.00); RDW 15.5 % (10.5-14.5); WBC 13.6 thou/uL (4.0-11.0)
[2020-08-28 07:46] LABS: ABSOLUTE NEUTROPHILS 11.3 thou/uL (1.4-8.2); METAMYELOCYTES 1 %; PLATELET ESTIMATE INCREASED
[2020-08-29] VITALS (9 sets, daily range): BP systolic 128–170; BP diastolic 66–100
[2020-08-29 05:51] LABS: ALBUMIN 1.6 g/dL (3.4-5.0); CALCIUM 6.7 mg/dL (8.5-10.1); DIRECT BILIRUBIN 0.1 mg/dL (<0.1-0.2); PHOSPHORUS 2.8 mg/dL (2.5-4.9); POTASSIUM 3.7 mmol/L (3.5-5.1); TOTAL BILIRUBIN 0.3 mg/dL (0.2-1.0); TOTAL PROTEIN 4.5 g/dL (6.4-8.2)
--- NOTE | 2020-08-29 06:00 | NUR ---
PT AWAKE AND ALERT. SLEPT AT INTERVALS TONIGHT. VSS SINUS RHYTHM. 2000 CC UO THIS SHIFT. REMAINS IN COVID ISOLATIION.PT AND OT TO SEE PT TODAY AND THEN MAYBE 3 WEST OR DISMISS TO HOME. O2 SAT 95 % ON 6 L NC WILL CONT TO MONITOR.
--- NOTE | 2020-08-29 10:50 | NUR ---
ASSUMED CARE OF PATIENT AT 0700. PATIENT IS ANXIOUS TO GO HOME.
--- NOTE | 2020-08-29 12:36 | NUR ---
chart review. unable to visit with tony casanova covid + and conserve ppe. nusrat spoke with his orestes, she reported " don say he might go home today. he has oxygen at home, he has his pet scan [facility] 7am on 08/31/20 then on he has appoint to talk about result of his cancers. i have been packing up and i am going to retire. i need to take care of him and we will be moving in with daughter in independent by end of september. thanks for calling"/orestes. nusrat notified by bedside nurse that he will get his last dose of remdesivir then dc home today.
[2020-08-30] VITALS (19 sets, daily range): BP systolic 120–186; BP diastolic 69–149
--- NOTE | 2020-08-30 05:15 | NUR ---
PATIENT AWAKE, ALERT AND ORIENTED X4. PT SLEPT ON/OFF. UP WITH ASSIST X1 TO BEDSIDE COMMODE X6 WITH NOTABLE FREQUENCY ISSUES AND INABILITY TO USE THE URINAL. PT IS WEAK ON HIS FEET AND AT RISK FOR FALLS, REMINDED TO USE CALL LIGHT BEFORE GETTING OUT OF BED PT STATES THAT HE LIVES AT HOME WITH FAMILY. UOP 1350ML, VERY DARK TEA COLORED. NO BM OVERNIGHT
[2020-08-30 05:47] LABS: HEMATOCRIT 32.5 % (42.0-52.0); HEMOGLOBIN 10.5 gm/dL (14.0-18.0); MCH 27.5 pg (26.0-34.0); MCHC 32.4 g/dL (28.0-37.0); RBC 3.82 mil/uL (4.50-6.00); RDW 15.2 % (10.5-14.5); WBC 15.6 thou/uL (4.0-11.0)
[2020-08-30 06:31] LABS: CREATININE 1.2 mg/dL (0.7-1.3)
[2020-08-30 06:35] LABS: CALCIUM 8.7 mg/dL (8.5-10.1); POTASSIUM 4.7 mmol/L (3.5-5.1)
--- NOTE | 2020-08-30 09:46 | NUR ---
Nutrition: Pt admitted with PNA, COVID + and seen for LOS. PMH: lung CA, COPD, DM, HTN, CAD. BG 196-325, on lispro, glargine. No recent A1C. Eating on average 56% of meals past 10 meals. Nsg assists with food preferences, alternative menu as pt dislikes some foods. Noted ensure pudding is ordered on trays but pt not eating. Pt agreeable to Glucerna supplements, will change to these BID. Receiving vitamin pack for COVID. Stable weights past month per [employer] hx. Place as low nutrition risk.
[2020-08-30] MEDS ORDERED: LANTUS SUBQ (13:11)
[2020-08-30] MEDS ORDERED: PREDNISONE 10 M10 M1 PO (13:12)
[2020-08-30] MEDS ORDERED: VITAMIN C500 M1 PO (13:12)
[2020-08-30] MEDS ORDERED: ZINC SULFATE220 MG PO (13:12)
[2020-08-30] MEDS ORDERED: KEFLEX500 M1 PO (13:13)
--- NOTE | 2020-08-30 14:06 | NUR ---
FEELING STRONGER TODAY, DR. GILL ASSESSED AND ORDERED DISCHARGE WITH HOME HEALTH. DISCHARGE INSTRUCTIONS EXPLAINED AND ALL MEDICTIONS REVIEWED. WILL HAVE RIDE AT 1700.
--- NOTE | 2020-08-30 16:38 | NUR ---
on-going assessment: CM REVIEWED CHART. PT HAS ORDERS TO DISCHARGE HOME TODAY WITH HH. CM CONTACTED [facility] DUE TO NEEDING AUTH FOR HOME HEALTH. AURELIO SPOKE WITH BIANCA Uribe AT [facility] WHO REPORTS SHE HAS STARTED THE REQUEST AND THEN THEY REACH OUT TO THE HOME HEALTH COMPANY AND FIND [facility] [employer] WHO THEN FOLLOWS UP WITH THE PATIENT REF#[id number]. AURELIO FAXED D.C ORDERS TO [facility] FAX [phone]. NOTIFIED PTS OF PROCESS AND HH WILL CALL PATIENT.
--- NOTE | 2020-09-01 15:51 | NUR ---
ALVA JACOBS IS OON WITH PT'S [employer] INS TO FIND A HH AGENCY IT'S A [employer] [place] (MEDICARE REPLACEMENT) SO TRIED [facility] SPOKE WITH INTAKE THEY DO NOT ACCEPT PT'S INSURANCE. SPOKE WITH PT'S TO LET HER KNOW THAT WE ARE STILL TRYING TO FIND HH FOR HER PT'S PCP IS DR GENNA MARIO. PT'S WAS UNDERSTANDING. DP TO FOLLOW.
--- NOTE | 2020-09-01 16:14 | NUR ---
on-going assessment: AURELIO RECEIVED A VM TODAY FROM [facility] STATING THAT PT HAS A [facility] [employer] [place] PLAN SO THEY ARE NOT ABLE TO FOLLOW THROUGH WITH THE REQUEST FOR HH AND THAT CM MUST FIND A PROVIDER. CM WAS NOT NOTIFIED OF THIS ON SATURDAY WHEN [facility] WAS CONTACTED FOR HH AND WAS GIVEN A REF# THAT THEY WERE FINDING A HH AND WOULD SET THE PATIENT UP. CM DISCUSSED THAT IS IT NOW 2 DAYS LATER AND JUST BEING MADE AWARE OF THIS PT ALREADY DISCHARGED. AURELIO REACHED OUT AGAIN TO [facility] [phone] IN ATTEMPTS TO SEE WHAT HH COMPANIES ARE IN NETWORK MULTIPLE ONES STATED THEY CANNOT ACCEPT, [facility]/ [facility]/ [facility]. AURELIO SPOKE WITH WHO REPORTS THAT [facility], [facility] AND [facility] ARE IN NETWORK. CM AGAIN SENT REFERRALS. [facility] AND [facility] STATING THEY ARE NOT IN NETWORK AND WILL NOT ACCEPT. [facility] STATES THEY ARE IN NETWORK BUT WILL NOT ACCEPT COVID POSITIVE PATIENTS. AURELIO ALSO SPOKE WITH ON LICENSE OF [facility] WHO REPORTS THEY ARE IN NETWORK BUT DO NOT TAKE COVID POSITIVE PATIENTS. AURELIO IS UNABLE TO FIND ANY ACCEPTING HH COMPANY. CM NOTIFIED CM DIRECTOR PTS IS UPSET AND WANTS PATIENT SEEN FOR PHSYICAL THERAPY [facility]. AURELIO REACHED OUT TO [facility] WHO REPORTS THEY CAN LIKELY ACCEPT PATIENT IF WE AGREE TO COVER THE COST FOR HH AND INITIAL VISIT IS USUALLY AROUND 200/VISIT AND 180/FOR EACH OTHER ADDITIONAL VISIT. CM NOTIFIED CM DIRECTOR WHO REPORTS TO HAVE [facility] CONTACT HER VIA EMAIL AND SHE WILL DISCUSS AND GET APPROVAL FROM [facility]. AURELIO PROVIDED JOSEPH ASHLEYSON FROM [facility] TO GET IN TOUCH WITH CM DIRECTOR. AURELIO NOTIFIED PTS .
== END 2020-08-30 17:10 | disposition home health service (06) | DRG 871 ==
LOC: ER 11:25 → EROBS 14:32 → ICU 14:32
PROVIDERS: Emergency Medicine; Hospitalist; Internal Medicine; Internal Medicine Pulmonary Disease; Specialist; ADMIT Internal Medicine; ATTEND Internal Medicine
DX: A41.9 Sepsis, unspecified organism (principal); U07.1 COVID-19; R65.21 Severe sepsis with septic shock; J96.21 Acute and chronic respiratory failure with hypoxia; J12.89 Other viral pneumonia; N17.9 Acute kidney failure, unspecified; C34.90 Malignant neoplasm of unspecified part of unspecified bronchus or lung; J44.0 Chronic obstructive pulmonary disease with (acute) lower respiratory infection; I42.9 Cardiomyopathy, unspecified; N18.9 Chronic kidney disease, unspecified; E11.22 Type 2 diabetes mellitus with diabetic chronic kidney disease; E78.5 Hyperlipidemia, unspecified; I95.9 Hypotension, unspecified; I25.10 Atherosclerotic heart disease of native coronary artery without angina pectoris; I12.9 Hypertensive chronic kidney disease with stage 1 through stage 4 chronic kidney disease, or unspecified chronic kidney disease; E66.9 Obesity, unspecified; R59.0 Localized enlarged lymph nodes; E87.5 Hyperkalemia; Z95.5 Presence of coronary angioplasty implant and graft; Z87.891 Personal history of nicotine dependence; Z71.6 Tobacco abuse counseling; Z68.32 Body mass index [BMI] 32.0-32.9, adult; Z91.19 Patient's noncompliance with other medical treatment and regimen; I25.2 Old myocardial infarction; Z79.899 Other long term (current) drug therapy
CPT/HCPCS: 10078; 10203; 27000